=== PATIENT | male | born 1955 | race Caucasian/White ===

== ENCOUNTER 2020-07-19 12:14 | Emergency (ER) | payer MEDICARE, BC ==
[2020-07-19 12:33] VITALS: BP 156/91; PULSE 72; RESP 18; TEMP 98.6
--- NOTE | 2020-07-19 13:05 | ED ---
General Adult HPI - General Chief complaint: Alcohol Stated complaint: ETOH Time Seen by Provider: 07/19/20 12:48 Source: patient, EMS Mode of arrival: EMS - History of Present Illness Initial comments: Dictation was produced using [employer] dictation software. please excuse any grammatical, word or spelling errors. This patient was cared for during a federal and state declared state of emergency secondary to Covid 19 Chief Complaint: 65-year-old male with past medical history of alcohol abuse presents with daughter for EtOH intoxication. History of Present Illness: It is a 65-year-old male is brought in by daughter. Patient has been living in a hotel. He's been drinking heavily. Daughter is concerned that he is trying to drink himself to . Patient denies any suicidal ideation. He tried to check patient into [facility] however due to his EtOH intoxication he was not accepted. He was told to bring him back whenever he is sober or taken to the emergency room. Daughter decided to bring him to the emergency room. She states that he was drunk earlier and is not drunk anymore. She has no medical complaints. Daughter does not want take him home. She prefer that he sober up here in the hospital emergency department and to be transported to [facility] when he is ready. The ROS documented in this emergency department record has been reviewed and confirmed by me. Those systems with pertinent positive or negative responses donaldson ve been documented in the HPI. All other systems are other negative and/or noncontributory. PHYSICAL EXAM: General Impression: Alert and oriented x3, not in acute distress HEENT: Normocephalic atraumatic, extra-ocular movements intact, pupils equal and reactive to light bilaterally, mucous membranes moist. Cardiovascular: Heart regular rate and rhythm Chest: Able to complete full sentences, no retractions, no tachypnea Abdomen: abdomen soft, non-tender, non-distended, no organomegaly Musculoskeletal: Pulses present and equal in all extremities, no peripheral edema Motor: no focal deficits noted Neurological: CN II-XII grossly intact, no focal motor or sensory deficits noted Skin: Intact with no visualized rashes Psych: Normal affect and mood ED course: 65-year-old male presents emergency department for a alcohol intoxication. Vital signs upon arrival are within acceptable limits. Patient's well-appearing at bedside. Laboratory evaluation obtained. CBC, metabolic panel is within acceptable limits per it seemed to cause too 64. Patient daily drinker. He appears to be well functioning at this time he is able ambulate. Nurse spoke with [facility] who will accept patient if he is well-appearing. - Related Data Allergies Allergy/AdvReac Type Severity Reaction Status Date / Time No Known Allergies Allergy Verified 07/19/20 12:32 Review of Systems ROS Statement: Those systems with pertinent positive or pertinent negative responses have been documented in the HPI. ROS Other: All systems not noted in ROS Statement are negative. Past Medical History Past Medical History: Hypertension History of Any Multi-Drug Resistant Organisms: None Reported Past Surgical History: No Surgical Hx Reported Past Psychological History: No Psychological Hx Reported Smoking Status: Current every day smoker Past Alcohol Use History: Abuse, Daily, Heavy Past Drug Use History: None Reported Course Vital Signs 07/19/20 12:29 Temperature 98.6 F Pulse Rate 72 Respiratory 18 Rate Blood Pressure 156/91 O2 Sat by Pulse 95 Oximetry Medical Decision Making - Lab Data Result diagrams: 07/19/20 13:20 07/19/20 13:20 Lab Results 07/19/20 07/19/20 Range/Units 13:20 13:20 WBC 4.8 (3.8-10.6) k/uL RBC 4.31 (4.30-5.90) m/uL Hgb 15.6 (13.0-17.5) gm/dL Hct 44.8 (39.0-53.0) % MCV 104.1 H (80.0-100.0) fL MCH 36.1 H (25.0-35.0) pg MCHC 34.7 (31.0-37.0) g/dL RDW 13.5 (11.5-15.5) % Plt Count 145 L (150-450) k/uL MPV 7.8 Neutrophils % 59 % Lymphocytes % 29 % Monocytes % 7 % Eosinophils % 1 % Basophils % 2 % Neutrophils # 2.8 (1.3-7.7) k/uL Lymphocytes # 1.4 (1.0-4.8) k/uL Monocytes # 0.3 (0-1.0) k/uL Eosinophils # 0.0 (0-0.7) k/uL Basophils # 0.1 (0-0.2) k/uL Macrocytosis Slight Sodium 143 (137-145) mmol/L Potassium 4.0 (3.5-5.1) mmol/L Chloride 105 (98-107) mmol/L Carbon Dioxide 23 (22-30) mmol/L Anion Gap 15 mmol/L BUN 12 (9-20) mg/dL Creatinine 0.56 L (0.66-1.25) mg/dL Est GFR (CKD-EPI)AfAm >90 (>60 ml/min/1.73 sqM) Est GFR (CKD-EPI)NonAf >90 (>60 ml/min/1.73 sqM) Glucose 66 L (74-99) mg/dL Calcium 8.7 (8.4-10.2) mg/dL Magnesium 1.9 (1.6-2.3) mg/dL Serum Alcohol 264 H* mg/dL Disposition Clinical Impression: Alcoholic intoxication Disposition: OTHER INSTITUTION NOT DEFINED Condition: Fair Referrals: None,Stated [Primary Care Provider] - 1-2 days - Out of Hospital Transfer - Req. Specs Out of Hospital Transfer - Requested Specifics: Other Non-Acute ([facility])
[2020-07-19 13:43] LABS: Basophils # (A) 0.1 k/uL (0-0.2); Basophils % (A) 2 %; Eosinophils % (A) 1 %; HCT 44.8 % (39.0-53.0); HGB 15.6 gm/dL (13.0-17.5); Lymphocytes # (A) 1.4 k/uL (1.0-4.8); Lymphocytes % (A) 29 %; MCH 36.1 pg (25.0-35.0); MCHC 34.7 g/dL (31.0-37.0); MCV 104.1 fL (80.0-100.0); Macrocytosis Slight; Mean Platelet Volume 7.8; Monocytes # (A) 0.3 k/uL (0-1.0); Monocytes % (A) 7 %; Neutrophils # (A) 2.8 k/uL (1.3-7.7); Neutrophils % (A) 59 %; Platelet Count 145 k/uL (150-450); RBC 4.31 m/uL (4.30-5.90); RDW 13.5 % (11.5-15.5); WBC 4.8 k/uL (3.8-10.6)
[2020-07-19 13:58] LABS: African American GFR (CKD) >90 (>60 ml/min/1.73 sqM); Anion Gap 15 mmol/L; Blood Urea Nitrogen 12 mg/dL (9-20); Calcium 8.7 mg/dL (8.4-10.2); Carbon Dioxide 23 mmol/L (22-30); Chloride 105 mmol/L (98-107); Glucose 66 mg/dL (74-99); Magnesium 1.9 mg/dL (1.6-2.3); Non-African American GFR(CKD) >90 (>60 ml/min/1.73 sqM); Sodium 143 mmol/L (137-145)
[2020-07-19 14:22] LABS: Alcohol 264 mg/dL
== END 2020-07-19 14:47 | disposition other institution (70) ==
LOC: EC 12:14
DX: F10.129 Alcohol abuse with intoxication, unspecified (principal); I10 Essential (primary) hypertension; F17.200 Nicotine dependence, unspecified, uncomplicated; Y90.8 Blood alcohol level of 240 mg/100 ml or more
CPT/HCPCS: 36415; 80048; 83735; 85025; 99285; G0480; 80320